=== PATIENT | female | born 1960 ===

== ENCOUNTER 2016-12-15 13:59 | Day surgery (SDC) | payer OTHER ==
[2016-12-15] MEDS ORDERED: Midazolam 2 MG/2 ML VIAL ONE (15:50)
[2016-12-15] MEDS ORDERED: Sodium Chloride 0.9% 1,000 ML IV SCH (17:00)
[2016-12-15 17:13] VITALS: BMI 33.8
--- NOTE | 2016-12-16 16:29 | CATH ---
APPROVED REPORT HISTORY The patient is a 56 year-old mmale with a history of : hypertension, dyslipidemia. INDICATION The indication(s) include : non-STEMI (>24 hrs to = 48 hrs), chest pain, atrial fibrillation. CASE TECHNIQUE The patient was brought electively to the Cardiac Catheterization Laboratory in a fasting state and was prepped and draped in a sterile manner. The right femoral groin was infiltrated with 2% Lidocaine subcutaneous anesthesia. A sheath was inserted into the right femoral artery without difficulty. Coronary angiography was performed using coronary diagnostic catheters. The left coronary system was accessed and visualized with a Diagnostic catheter. The right coronary system was accessed and visualized with a Diagnostic catheter. The left ventricle was accessed and visualized with a Diagnostic catheter. Left ventricular/Aortic Valve gradient assessed on pullback. Left ventriculogram was performed in MOSES projection. Pre-demployment femoral angiogram was performed . Closure device was deployed with a Fr Angioseal without any complications. Vessel Analysis The patient's coronary anatomy is left dominant. The left main coronary artery is a large size vessel without stenosis. The left main bifurcates to the left anterior descending and circumflex. The left anterior descending artery is a large size vessel without stenosis. The first diagonal branch is a small size vessel without significant stenosis. The second diagonal branch is a large size vessel without stenosis. The circumflex artery is a large size vessel without stenosis. The first obtuse marginal branch is a large size vessel without stenosis. The second obtuse marginal branch is a large size vessel without stenosis. The left posterior descending artery is a large size vessel without stenosis. The right coronary artery is a small size vessel without stenosis. Left Ventricle The left ventricle is normal in size with normal contractility. The left ventricular ejection fraction is estimated to be 75%. The left ventricular end diastolic pressure is 20 mmHg. There was no gradient across the aortic valve upon pullback. Conclusion Concentric hypertrophy of LV No sig CAD L dominant system Recommendations Aggressive Medical TherapyCardiac Risk Reduction Program Medical Therapy
== END 2016-12-15 20:00 | disposition short-term general hospital (02) ==
LOC: C.CATHLAB 13:59
PROVIDERS: ATTEND Internal Medicine Cardiovascular Disease
DX: I25.10 Atherosclerotic heart disease of native coronary artery without angina pectoris (principal); I48.91 Unspecified atrial fibrillation; E78.5 Hyperlipidemia, unspecified; I10 Essential (primary) hypertension
CPT/HCPCS: 93452; J1644; J2250; J3010; J7040; Q9967

== ENCOUNTER 2018-04-15 20:45 | Inpatient (IN) | payer OTHER ==
[2018-04-15 20:46] VITALS: BMI 33.8
[2018-04-15 22:05] LABS: SQUAMOUS EPITHIAL 3 /hpf (0-5); URINE BACTERIA RARE (<OCC); URINE BILIRUBIN NEGATIVE (NEGATIVE); URINE BLOOD 1+ (NEGATIVE); URINE CLARITY Hazy (Clear); URINE COLOR Yellow (YELLOW); URINE GLUCOSE (UA) NORMAL (Normal); URINE LEUKOCYTE ESTERASE NEG Leu/uL (Negative); URINE PROTEIN NEGATIVE (NEGATIVE)
[2018-04-15 22:07] LABS: BASO # 0.1 K/uL (0.0-0.2); BASO % 0.5 % (0.0-2.0); EOS # 0.2 K/uL (0.0-0.7); EOS % 1.7 % (0.0-4.0); LYMPH # 4.1 K/uL (1.0-4.3); LYMPH % 42.1 % (20.0-40.0); MEAN CELL VOLUME 91.3 fL (81.0-99.0); MEAN CORPUSCULAR HEMOGLOBIN 29.2 pg (27.0-31.0); MEAN CORPUSCULAR HGB CONC 31.9 g/dL (33.0-37.0); MEAN PLATELET VOLUME 9.4 fL (7.2-11.7); MONO # 0.6 K/uL (0.0-0.8); MONO % 6.4 % (0.0-10.0); NEUT # 4.8 K/uL (1.8-7.0); NEUT % 49.3 % (50.0-75.0); NRBC % 0.1 % (0.0-2.0); RBC 5.16 Mil/uL (3.80-5.20); RED CELL DISTRIBUTION WIDTH 13.5 % (11.5-14.5); WHITE BLOOD COUNT 9.8 K/uL (4.8-10.8)
[2018-04-15 22:16] LABS: BARBITURATES, UR NEGATIVE (NEGATIVE); BENZODIAZEPINES, UR NEGATIVE (NEGATIVE); OPIATES, UR NEGATIVE (NEGATIVE); PHENCYCLIDINE, UR NEGATIVE (NEGATIVE)
[2018-04-15 22:22] LABS: ALB/GLOB RATIO 1.5 (1.0-2.1); ALBUMIN 4.9 g/dL (3.5-5.0); ALT/SGPT 14 U/L (9-52); AST/SGOT 34 U/L (14-36); BLOOD UREA NITROGEN 27 mg/dL (7-17); CALCIUM 10.6 mg/dl (8.6-10.4); GFR NON-AFRICAN AMERICAN > 60
--- NOTE | 2018-04-16 00:11 | C.PDOC ---
History Of Present Illness 57 year old female with PMHx of dementia, schizophrenia, bipolar disorder is brought to the ED by her sister and home health aid for evaluation. Prior ED evaluations for similar presentation 1 year ago. Patient is non compliant with her medications, has history of aggressive behaviour towards her home health aid. <Austen Hernandez - Last Filed: 04/16/18 00:43> History Per: Family History/Exam Limitations: clinical condition Onset/Duration Of Symptoms: Days Current Symptoms Are (Timing): Still Present Suicide/Self Injury Attempted (Context): None Modifying Factor(s): None Associated Symptoms: Anger, Agitation Recent travel outside of the [place]: No Additional History Per: Family, Intermediate <Austen Hernandez - Last Filed: 04/16/18 00:43> <Shawn Melendez - Last Filed: 04/16/18 02:21> Time Seen by Provider: 04/15/18 21:13 Chief Complaint (Nursing): Psychiatric Evaluation Past Medical History Reviewed: Historical Data, Nursing Documentation, Vital Signs Vital Signs: Last Vital Signs Temp 96 F L 04/15/18 20:49 Pulse 77 04/15/18 20:49 Resp 18 04/15/18 20:49 BP 188/96 H 04/15/18 20:49 Pulse Ox 96 04/15/18 20:49 - Medical History PMH: Anxiety, Bipolar Disorder, Depression, Gastritis, HTN (not on meds), Hypercholesterolemia, Schizophrenia Denies: Diabetes, Hepatitis, HIV, Chronic Kidney Disease, Seizures, Sexually Transmitted Disease Surgical History: No Surg Hx - [facility] Procedures GROUP PSYCHOTHERAPY (12/16/16) INDIVID PSYCHOTHERAP NEC (03/21/13) INDIVIDUAL PSYCHOTHERAPY, BEHAVIORAL (12/08/16) INTRODUCTION OF SERUM/TOX/VACCINE INTO MUSCLE, PERC APPROACH (12/13/16) MEASURE OF CARDIAC SAMPL & PRESSURE, L HEART, PERC APPROACH (12/13/16) OTHER GROUP THERAPY (03/21/13) PLAIN RADIOGRAPHY OF L LOW EXTREM ART USING OTH CONTRAST (12/13/16) PLAIN RADIOGRAPHY OF LEFT HEART USING OTHER CONTRAST (12/13/16) Family History: States: Unknown Family Hx - Social History Hx Alcohol Use: No Hx Substance Use: No - Immunization History Hx Tetanus Toxoid Vaccination: No Hx Influenza Vaccination: No Hx Pneumococcal Vaccination: No <Austen Hernandez - Last Filed: 04/16/18 00:43> Vital Signs: Last Vital Signs Temp 96 F L 04/15/18 20:49 Pulse 77 04/15/18 20:49 Resp 18 04/15/18 20:49 BP 188/96 H 04/15/18 20:49 Pulse Ox 96 04/16/18 00:45 - [facility] Procedures GROUP PSYCHOTHERAPY (12/16/16) INDIVID PSYCHOTHERAP NEC (03/21/13) INDIVIDUAL PSYCHOTHERAPY, BEHAVIORAL (12/08/16) INTRODUCTION OF SERUM/TOX/VACCINE INTO MUSCLE, PERC APPROACH (12/13/16) MEASURE OF CARDIAC SAMPL & PRESSURE, L HEART, PERC APPROACH (12/13/16) OTHER GROUP THERAPY (03/21/13) PLAIN RADIOGRAPHY OF L LOW EXTREM ART USING OTH CONTRAST (12/13/16) PLAIN RADIOGRAPHY OF LEFT HEART USING OTHER CONTRAST (12/13/16) <Shawn Melendez - Last Filed: 04/16/18 02:21> Review Of Systems Review Of Systems: ROS cannot be obtained secondary to pt's inabilty to answer questions. <Austen Hernandez - Last Filed: 04/16/18 00:43> Physical Exam - Physical Exam Appears: Non-toxic, Unkempt, Confused, Chronically Ill (mentally) Skin: Normal Color, Warm, Dry Head: Atraumatic, Normacephalic Eye(s): bilateral: Normal Inspection Neck: Normal ROM, Supple Chest: Symmetrical Cardiovascular: Rhythm Regular Respiratory: Normal Breath Sounds, No Rales, No Rhonchi, No Wheezing Gastrointestinal/Abdominal: Soft, No Tenderness Extremity: Normal ROM Neurological/Psych: Other (mumbling incoherent) Gait: Steady <Austen Hernandez - Last Filed: 04/16/18 00:43> ED Course And Treatment - Laboratory Results Result Diagrams: 04/15/18 22:04 04/15/18 22:04 Lab Results: Total Bilirubin 0.5 mg/dL (0.2-1.3) 04/15/18 22:04 AST 34 U/L (14-36) 04/15/18 22:04 ALT 14 U/L (9-52) 04/15/18 22:04 Alkaline Phosphatase 85 U/L (38-126) 04/15/18 22:04 Total Protein 8.2 g/dL (6.3-8.3) 04/15/18 22: Albumin 4.9 g/dL (3.5-5.0) 04/15/18 22:04 Globulin 3.3 gm/dL (2.2-3.9) 04/15/18 22:04 Albumin/Globulin Ratio 1.5 (1.0-2.1) 04/15/18 22:04 Urine Color Yellow (YELLOW) 04/15/18 21:55 Urine Clarity Hazy (Clear) 04/15/18 21:55 Urine pH 5.0 (5.0-8.0) 04/15/18 21:55 Ur Specific [place] 1.023 (1.003-1.030) 04/15/18 21:55 Urine Protein Negative mg/dL (NEGATIVE) 04/15/18 21:55 Urine Glucose (UA) Normal mg/dL (Normal) 04/15/18 21:55 Urine Ketones Negative mg/dL (NEGATIVE) 04/15/18 21:55 Urine Blood 1+ (NEGATIVE) H 04/15/18 21:55 Urine Nitrate Negative (NEGATIVE) 04/15/18 21:55 Urine Bilirubin Negative (NEGATIVE) 04/15/18 21:55 Urine Urobilinogen 2.0 mg/dL (0.2-1.0) H 04/15/18 21:55 Ur Leukocyte Esterase Neg Angelita/uL (Negative) 04/15/18 21:55 Urine WBC (Auto) 1 /hpf (0-5) 04/15/18 21:55 Urine RBC (Auto) 4 /hpf (0-3) H 04/15/18 21:55 Ur Squamous Epith Cells 3 /hpf (0-5) 04/15/18 21:55 Urine Bacteria Rare (<OCC) 04/15/18 21:55 Lab Interpretation: Normal (ua neg.) O2 Sat by Pulse Oximetry: 96 (ON RA) Pulse Ox Interpretation: Normal Progress Note: 0005: medically cleared for psych adm. EKG and CXR pending in case of Psych Screening <Austen Hernandez - Last Filed: 04/16/18 00:43> - Laboratory Results Result Diagrams: 04/15/18 22:04 04/15/18 22:04 Lab Results: Total Bilirubin 0.5 mg/dL (0.2-1.3) 04/15/18 22:04 AST 34 U/L (14-36) 04/15/18 22:04 ALT 14 U/L (9-52) 04/15/18 22:04 Alkaline Phosphatase 85 U/L (38-126) 04/15/18 22:04 Total Protein 8.2 g/dL (6.3-8.3) 04/15/18 22:04 Albumin 4.9 g/dL (3.5-5.0) 04/15/18 22:04 Globulin 3.3 gm/dL (2.2-3.9) 04/15/18 22:04 Albumin/Globulin Ratio 1.5 (1.0-2.1) 04/15/18 22:04 Urine Color Yellow (YELLOW) 04/15/18 21:55 Urine Clarity Hazy (Clear) 04/15/18 21:55 Urine pH 5.0 (5.0-8.0) 04/15/18 21:55 Ur Specific [place] 1.023 (1.003-1.030) 04/15/18 21:55 Urine Protein Negative mg/dL (NEGATIVE) 04/15/18 21:55 Urine Glucose (UA) Normal mg/dL (Normal) 04/15/18 21:55 Urine Ketones Negative mg/dL (NEGATIVE) 04/15/18 21:55 Urine Blood 1+ (NEGATIVE) H 04/15/18 21:55 Urine Nitrate Negative (NEGATIVE) 04/15/18 21:55 Urine Bilirubin Negative (NEGATIVE) 04/15/18 21:55 Urine Urobilinogen 2.0 mg/dL (0.2-1.0) H 04/15/18 21:55 Ur Leukocyte Esterase Neg Angelita/uL (Negative) 04/15/18 21:55 Urine WBC (Auto) 1 /hpf (0-5) 04/15/18 21:55 Urine RBC (Auto) 4 /hpf (0-3) H 04/15/18 21:55 Ur Squamous Epith Cells 3 /hpf (0-5) 04/15/18 21:55 Urine Bacteria Rare (<OCC) 04/15/18 21:55 ECG: Interpreted By Me, Viewed By Me ECG Rhythm: Sinus Rhythm (701), Nonspecific Changes (lvh) Pulse Ox Interpretation: Normal <Shawn Melendez - Last Filed: 04/16/18 02:21> Medical Decision Making Medical Decision Making: decompensaed bipolar/schizo/dementia, non-compliant w PO meds @ home, unable to be controlled by [employer], 0010: pending psych eval. 0100: signed over to overnight MD pending Psych Dispo <Austen Hernandez E - Last Filed: 04/16/18 00:43> Disposition <Austen Hernandez - Last Filed: 04/16/18 00:43> Discussed With Dr.: Hortencia Forde Comment: acceptd the pt on his service and took over the care at 2:06 AM Doctor Will See Patient In The: Hospital Counseled Patient/Family Regarding: Studies Performed, Diagnosis - Disposition Disposition Time: 01:00 - POA Present On Arrival: None <Shawn Melendez - Last Filed: 04/16/18 02:21> - Disposition Disposition: HOSPITALIZED Condition: FAIR Forms: [employer] (Stateless) - Clinical Impression Clinical Impression: Bipolar disorder, unspecified - Scribe Statement The provider has reviewed the documentation as recorded by the Scribe Alin Merchant All medical record entries made by the Scribe were at my direction and personally dictated by me. I have reviewed the chart and agree that the record accurately reflects my personal performance of the history, physical exam, medical decision making, and the department course for this patient. I have also personally directed, reviewed, and agree with the discharge instructions and disposition. <Austen Hernandez E - Last Filed: 04/16/18 00:43> Physician Patient Turnover Patient Signed Over To: Shawn Melendez Handoff Comments: Pending Crisis/Psych Dispo <Austen Hernandez - Last Filed: 04/16/18 00:43> Decision To Admit <Austen Hernandez - Last Filed: 04/16/18 00:43> - Pt Status Changed To: Hospital Disposition Of: Inpatient - Admit Certification Admit to Inpatient:: After my assessment, the patient will require hospitalization for at least two midnights. This is because of the severity of symptoms shown, intensity of services needed, and/or the medical risk in this patient being treated as an outpatient. - InPatient: Physician Admission Certification: I certify that this patient requires 2 or more midnights of care for the following reason:: After my assessment, the patient will require hospitalization for at least two midnights. This is because of the severity of symptoms shown, intensity of services needed, and/or the medical risk in this patient being treated as an outpatient. - . Bed Request Type: Psychiatry Admitting Physician: Hortencia Forde <Shawn Melendez - Last Filed: 04/16/18 02:21> - . Patient Diagnosis: Bipolar disorder, unspecified
[2018-04-16] MEDS ORDERED: Influenza Vaccine 60 mcg/0.5 mL SYR (4YR UP) IM ONE (04:46)
--- NOTE | 2018-04-16 05:10 | PCM.BM ---
<Sriram Olmedo - Last Filed: 04/16/18 05:07> Treatment Plan Problems - Problems identified on initial assessmt Altered Thought Process Date Initiated: 04/16/18 Time Initiated: 03:40 Assessment reference: NA Status: Active Agitated/Aggressive Behavior Date Initiated: 04/16/18 Time Initiated: 03:40 Assessment reference: NA Status: Monitor Treatment assets and liabiliti Patient Assests: ADL independent, good support system, negotiates basic needs, s jenifer vipin Patient Liabilities: live alone, medical problems - Milieu Protocol Maintain good personal hygiene: daily Encourage regular showers, daily Remind patient to perform daily oral care, daily Assist patient to perform ADL's Conduct patient checks and document Observation sheet: Q15 minutes Maintain personal safety: every shift Educate patient to report safety concerns to staff, every shift Monitor environment for contraband/sharps Medication safety: Monitor for expected outcome, potential side effects: every shift, Assess barriers to learning: every shift, Assess readiness for medication education: every shift <Poppy San - Last Filed: 04/20/18 11:52> - Diagnosis (1) Schizoaffective disorder Status: Acute Interventions: 04/20/18 11:54 * Assess/adjust medications daily and /or as needed * See patient on an individual basis 7x/week to assess status of hallucinations * Discuss risks, benefits, side effects and alternatives of medications * <Chrissie Trimble - Last Filed: 04/20/18 14:26> Family Contact Family involvement: Family/SO is involved Family contact: Patient agrees to contact Family contact name: Marlyn Dupont-sister Family contacted how many times per week?: 1 - Goals for Treatment Patient goals for treatment: "I need help." Discharge/Continuing Care - Education Needs Education Needs: Patient Medication, Patient Coping Skills - Discharge Discharge Criteria: Tolerates medication w/o severe side effects, Reduction of target symptoms Discharge to:: Home - Treatment Team Participation Discussed with Family/SO: No Was Patient/Family/SO present at Treatment Team Meeting: Yes
[2018-04-16] MEDS ORDERED: Pneumococcal 23-Valent Vaccine IM ONE (05:15)
--- NOTE | 2018-04-16 15:37 | RAD ---
Date of service: 04/16/2018 HISTORY: psych adm COMPARISON: No prior. FINDINGS: LUNGS: No active pulmonary disease. PLEURA: No significant pleural effusion identified, no pneumothorax apparent. CARDIOVASCULAR: No aortic atherosclerotic calcification present. Normal cardiac size. No pulmonary vascular congestion. OSSEOUS STRUCTURES: No significant abnormalities. VISUALIZED UPPER ABDOMEN: Normal. OTHER FINDINGS: None. IMPRESSION: No active disease.
[2018-04-16] MEDS: Lithium Carbonate ER Tab 450 MG PO SCH (18:57)
[2018-04-17] MEDS: Lithium Carbonate ER Tab 450 MG PO SCH ×2 (10:15→17:48)
[2018-04-18] MEDS: Lithium Carbonate ER Tab 450 MG PO SCH ×2 (10:05→17:42)
--- NOTE | 2018-04-18 10:43 | PCM.PSYCH ---
Initial Psychiatric Evaluation - Initial Psychiatric Evaluation Type of Admission: Voluntary Legal Status: Capacity Current Medications: Active Medications Generic Name Dose Route Start Last Admin Trade Name Ellyn PRN Reason Stop Dose Admin Aripiprazole 2 mg 04/16/18 18:00 04/18/18 10:05 Abilify PO 2 mg DAILY NEHAL Administration Gabapentin 300 mg 04/16/18 18:00 04/18/18 10:05 Neurontin PO 300 mg TID NEHAL Administration [place] Carbonate 450 mg 04/16/18 18:00 04/18/18 10:05 [place] Carbonate PO 450 mg BID NEHAL Administration Past Psychiatric History - Past Psychiatric History Pertinent Medical Hx (Current Medical&Sleep Prob, Allergies): Allergies Allergy/AdvReac Type Severity Reaction Status Date / Time No Known Allergies Allergy Verified 04/15/18 21:06 Aspirin [Ecotrin] 81 mg PO DAILY #30 tabec 12/22/16 Bisoprolol [Zebeta] 2.5 mg PO DAILY #30 tab 12/22/16 Divalproex [Depakote DR(*BID*)] 500 mg PO BID #60 tcp 12/22/16 risperiDONE [RisperDAL Tab] 3 mg PO Q12 #60 tab 12/22/16 Allopurinol [Zyloprim] 300 mg PO DAILY 04/15/18 Ergocalciferol [Drisdol] 50,000 iu PO QWK 04/15/18 [id number] Ethyl Esters 1 GM [Lovaza] 2 cap PO BID 04/15/18 Rosuvastatin Calcium 10 mg PO HS 04/15/18
--- NOTE | 2018-04-18 10:43 | PCM.PYCHPN ---
Psychiatric Progress Note - Psychiatric Progress Note Patient seen today, length of contact: 15 min Patient Chief Complaint: I was feeling irritable.' Problems Identified/Issues Discussed: Patient was seen and evaluated, chart reviewed and discussed the staff. Patient still appears disorganized and internally preoccupied. As per the staff she remained isolative and withdrawn and appears paranoid and delusional. She is taking medication but denies any side effects. Symptoms are improving gradually but she needs to stay longer for the stabilization. Supportive therapy was given. Medication Change: Yes Medical Record Reviewed: Yes Mental Status Examination - Cognitive Function Orientation: Person, Place, Situation, Time Memory: Intact Attention: WNL Concentration: Poor Association: Loose Fund of Knowledge: WNL - Mood Mood: Anxious - Affect Affect: Constricted - Speech Speech: Pressured - Formal Thought Process Formal Thought Process: Hallucinations, Delusions, Paranoia - Suicidal Ideation Suicidal Ideation: No - Homicidal Ideation Homicidal Ideation: No Goal/Treatment Plan - Goal/Treatment Plan Need for Continued Stay: Remain at risks for inpatient hospitalization Progress Toward Problem(s) and Goals/Treatment Plan: Bipolar disorder mixed severe with psychotic features CBT Psychoeducation Supportive therapy and group therapy Abilify for mood [place] for mood Neurontin for augmentation Hydroxyzine for anxiety Trazodone for insomnia
[2018-04-19] MEDS: Lithium Carbonate ER Tab 450 MG PO SCH ×2 (10:32→18:31)
--- NOTE | 2018-04-19 19:32 | CARD ---
APPROVED REPORT Date of service: 04/16/2018 EKG Measurement Heart [id number] <Conclusion> Normal sinus rhythm Left ventricular hypertrophy with repolarization abnormality Abnormal ECG
[2018-04-20] MEDS: Lithium Carbonate ER Tab 450 MG PO SCH ×2 (10:37→17:53)
--- NOTE | 2018-04-20 11:47 | PCM.PYCHPN ---
Psychiatric Progress Note - Psychiatric Progress Note Patient seen today, length of contact: 15 min Patient Chief Complaint: I m hearing voices.' Problems Identified/Issues Discussed: Patient was seen and evaluated, chart reviewed and discussed the staff. She was seen during the treatment meeting, she appeared disheveled, unkempt and was responding to internal stimuli. Patient still appears disorganized and internally preoccupied. As per the staff she remained isolative and withdrawn and appears paranoid and delusional. As per staff, she is going to urine and feces incontinent and she is going to the bathroom over and over. She is taking medication but denies any side effects. Symptoms are improving gradually but she needs to stay longer for the stabilization. Supportive therapy was given. Medication Change: Yes Medical Record Reviewed: Yes Mental Status Examination - Cognitive Function Orientation: Person, Place, Situation, Time Memory: Intact Attention: Poor Concentration: Poor Association: Loose Fund of Knowledge: Poor - Mood Mood: Anxious - Affect Affect: Constricted - Speech Speech: Soft - Formal Thought Process Formal Thought Process: Hallucinations, Delusions, Paranoia, Loosening of associations - Suicidal Ideation Suicidal Ideation: No - Homicidal Ideation Homicidal Ideation: No Goal/Treatment Plan - Goal/Treatment Plan Need for Continued Stay: Remain at risks for inpatient hospitalization Progress Toward Problem(s) and Goals/Treatment Plan: Bipolar disorder mixed severe with psychotic features CBT Psychoeducation Supportive therapy and group therapy Discontinue Abilify for mood Discontinue lithium for mood Neurontin for augmentation Hydroxyzine for anxiety Trazodone for insomnia Start Geodon for psychosis
[2018-04-21] MEDS: Lithium Carbonate ER Tab 450 MG PO SCH (09:47)
--- NOTE | 2018-04-21 16:11 | PCM.PYCHPN ---
Psychiatric Progress Note - Psychiatric Progress Note Patient seen today, length of contact: 15 min Patient Chief Complaint: I m hearing voices.' Problems Identified/Issues Discussed: Patient was seen and evaluated, chart reviewed and discussed the staff. She was seen during the treatment meeting, she appeared disheveled, unkempt and was responding to internal stimuli. Patient still appears disorganized and internally preoccupied. As per the staff she remained isolative and withdrawn and appears paranoid and delusional. As per staff, she is going to urine and feces incontinent and she is going to the bathroom over and over. She is taking medication but denies any side effects. Symptoms are improving gradually but she needs to stay longer for the stabilization. Supportive therapy was given. Medication Change: Yes Medical Record Reviewed: Yes Mental Status Examination - Cognitive Function Orientation: Person, Place, Situation, Time Memory: Intact Attention: Poor Concentration: Poor Association: Loose Fund of Knowledge: Poor - Mood Mood: Anxious - Affect Affect: Constricted - Speech Speech: Soft - Formal Thought Process Formal Thought Process: Hallucinations, Delusions, Paranoia, Loosening of associations - Suicidal Ideation Suicidal Ideation: No - Homicidal Ideation Homicidal Ideation: No Goal/Treatment Plan - Goal/Treatment Plan Need for Continued Stay: Remain at risks for inpatient hospitalization Progress Toward Problem(s) and Goals/Treatment Plan: Bipolar disorder mixed severe with psychotic features -CBT -Psychoeducation -Supportive therapy and group therapy -Neurontin for augmentation -Hydroxyzine for anxiety -Trazodone for insomnia -Geodon for psychosis - Smoking Cessation Smoking Cessation Initiated: No
--- NOTE | 2018-04-22 11:43 | PCM.PYCHPN ---
Psychiatric Progress Note - Psychiatric Progress Note Patient seen today, length of contact: 15 min Patient Chief Complaint: I m hearing voices.' Problems Identified/Issues Discussed: Patient was seen and evaluated, chart reviewed and discussed the staff. Patient still appears disorganized and internally preoccupied. She was seen during the treatment meeting, she appeared disheveled, unkempt and was responding to internal stimuli. As per the staff she remained isolative and withdrawn and appears paranoid and delusional. As per staff, she is going to urine and feces incontinent and she is going to the bathroom over and over. She is taking medication but denies any side effects. Symptoms are improving gradually but she needs to stay longer for the stabilization. Supportive therapy was given. Medication Change: Yes Medical Record Reviewed: Yes Mental Status Examination - Cognitive Function Orientation: Person, Place, Situation, Time Memory: Intact Attention: Poor Concentration: Poor Association: Loose Fund of Knowledge: Poor - Mood Mood: Anxious - Affect Affect: Constricted - Speech Speech: Soft - Formal Thought Process Formal Thought Process: Hallucinations, Delusions, Paranoia, Loosening of associations - Suicidal Ideation Suicidal Ideation: No - Homicidal Ideation Homicidal Ideation: No Goal/Treatment Plan - Goal/Treatment Plan Need for Continued Stay: Remain at risks for inpatient hospitalization Progress Toward Problem(s) and Goals/Treatment Plan: Bipolar disorder mixed severe with psychotic features CBT Psychoeducation Supportive therapy and group therapy Discontinue Abilify for mood Discontinue lithium for mood Neurontin for augmentation Hydroxyzine for anxiety Trazodone for insomnia Start Geodon for psychosis
--- NOTE | 2018-04-23 23:02 | PCM.PYCHPN ---
Psychiatric Progress Note - Psychiatric Progress Note Patient seen today, length of contact: 15 min Patient Chief Complaint: I am okay. Problems Identified/Issues Discussed: Patient seen, chart reviewed, case discussed with the staff. Issues related to illness and treatment were discussed with the patient and staff. Reported compliant with treatment with no adverse effects. Tolerating treatment very well. Mood reported as okay. Affect appropriate. Patient reported feeling little better. Patient was still disorganized, talkative but difficult to understand the words spoken. Staff also reported that patient is better than before and is also less isola tive. Patient needs more time for stabilization Aftercare discussed with the patient. Patient denied any delusions, auditory or visual hallucinations, no suicidal ideations or homicidal ideations at the time of evaluation Medical Problems: None reported Diagnostic Results: Reviewed DSM 5 Symptoms Update: Some improvement with treatment. Medication Change: No Medical Record Reviewed: Yes Mental Status Examination - Cognitive Function Orientation: Person, Place, Situation, Time Memory: Intact Attention: WNL Concentration: WNL Association: Loose Fund of Knowledge: Poor Decription of patient's judgement and insights: Fair - Mood Mood: Neutral - Affect Affect: Constricted - Speech Speech: Soft - Formal Thought Process Formal Thought Process: Delusions, Loosening of associations - Suicidal Ideation Suicidal Ideation: No - Homicidal Ideation Homicidal Ideation: No Goal/Treatment Plan - Goal/Treatment Plan Need for Continued Stay: Remain at risks for inpatient hospitalization, Discharge may exacerbated symptoms, Severe functional impairment Progress Toward Problem(s) and Goals/Treatment Plan: Patient education. Supportive therapy. Continue treatment as before. Estimated Date of D/C: 04/26/18 - Smoking Cessation Smoking Cessation Initiated: No
[2018-04-25 06:37] VITALS: O2SAT 97
--- NOTE | 2018-04-25 10:52 | PCM.PYCHPN ---
Psychiatric Progress Note - Psychiatric Progress Note Patient seen today, length of contact: 15 min Patient Chief Complaint: I m feeling okay.' Problems Identified/Issues Discussed: Patient was seen and evaluated, chart reviewed and discussed the staff. As per staff she is not incontinent anymore. However she still appears disorganized and internally preoccupied. She still responding to internal stimuli. However she remained calm, cooperative and redirectable. She remained disheveled and unkempt. She is taking medication but denies any side effects. Symptoms are improving gradually but she needs to stay longer for the stabilization. Supportive therapy was given. Medication Change: No Medical Record Reviewed: Yes Mental Status Examination - Cognitive Function Orientation: Person, Place, Situation, Time Memory: Intact Attention: WNL Concentration: Poor Association: Loose Fund of Knowledge: Poor - Mood Mood: Depressed, Anxious - Affect Affect: Constricted - Speech Speech: Soft - Formal Thought Process Formal Thought Process: Delusions, Loosening of associations - Suicidal Ideation Suicidal Ideation: No - Homicidal Ideation Homicidal Ideation: No Goal/Treatment Plan - Goal/Treatment Plan Need for Continued Stay: Remain at risks for inpatient hospitalization, Discharge may exacerbated symptoms, Severe functional impairment Progress Toward Problem(s) and Goals/Treatment Plan: Bipolar disorder mixed severe with psychotic features CBT Psychoeducation Supportive therapy and group therapy Neurontin for augmentation Hydroxyzine for anxiety Trazodone for insomnia Geodon for psychosis Olanzapine for psychosis Estimated Date of D/C: 04/26/18 - Smoking Cessation Smoking Cessation Initiated: No
--- NOTE | 2018-04-26 09:54 | PCM.PYCHPN ---
Psychiatric Progress Note - Psychiatric Progress Note Patient seen today, length of contact: 15 min Patient Chief Complaint: I am feeling okay.' Problems Identified/Issues Discussed: Patient was seen and evaluated, chart reviewed and discussed the staff. As per staff she is not incontinent anymore. She still appears disorganized, internally preoccupied and she is still responding to internal stimuli. She remained disheveled and unkempt. However she remained calm, cooperative and redirectable. She is taking medication but denies any side effects. Symptoms are improving gradually but she needs to stay longer for the stabilization. Supportive therapy was given. Medication Change: No Medical Record Reviewed: Yes Mental Status Examination - Cognitive Function Orientation: Person, Place, Situation, Time Memory: Intact Attention: Poor Concentration: Poor Association: Loose Fund of Knowledge: Poor - Mood Mood: Anxious - Affect Affect: Constricted - Speech Speech: Soft - Formal Thought Process Formal Thought Process: Delusions, Paranoia, Loosening of associations - Suicidal Ideation Suicidal Ideation: No - Homicidal Ideation Homicidal Ideation: No Goal/Treatment Plan - Goal/Treatment Plan Need for Continued Stay: Remain at risks for inpatient hospitalization, Discharge may exacerbated symptoms, Severe functional impairment Progress Toward Problem(s) and Goals/Treatment Plan: Bipolar disorder mixed severe with psychotic features CBT Psychoeducation Supportive therapy and group therapy Neurontin for augmentation Hydroxyzine for anxiety Trazodone for insomnia Geodon for psychosis Olanzapine for psychosis Estimated Date of D/C: 05/02/18
--- NOTE | 2018-04-27 10:17 | PCM.BM ---
<RashelChrissie Chacon - Last Filed: 04/27/18 10:16> Treatment Plan Problems - Problems identified on initial assessmt Altered Thought Process Date Initiated: 04/16/18 Time Initiated: 03:40 Assessment reference: NA Status: Active Agitated/Aggressive Behavior Date Initiated: 04/16/18 Time Initiated: 03:40 Assessment reference: NA Status: Monitor Treatment assets and liabiliti Patient Assests: ADL independent, good support system, negotiates basic needs, strong vipin Patient Liabilities: live alone, medical problems - Milieu Protocol Maintain good personal hygiene: daily Encourage regular showers, daily Remind patient to perform daily oral care, daily Assist patient to perform ADL's Conduct patient checks and document Observation sheet: Q15 minutes Maintain personal safety: every shift Educate patient to report safety concerns to staff, every shift Monitor environment for contraband/sharps Medication safety: Monitor for expected outcome, potential side effects: every shift, Assess barriers to learning: every shift, Assess readiness for medication education: every shift Milieu Narrative: Bipolar disorder mixed severe with psychotic features CBT Psychoeducation Supportive therapy and group therapy Neurontin for augmentation Hydroxyzine for anxiety Trazodone for insomnia Geodon for psychosis Olanzapine for psychosis Family Contact Family involvement: Family/SO is involved Family contact: Patient agrees to contact Family contact name: Marlyn Dupont-sister Family contacted how many times per week?: 1 - Goals for Treatment Patient goals for treatment: "I need help." Discharge/Continuing Care - Education Needs Education Needs: Patient Medication, Patient Coping Skills - Discharge Discharge Criteria: Tolerates medication w/o severe side effects, Reduction of target symptoms Discharge to:: Home - Treatment Team Participation Patient/Family/SO Statement: Bipolar disorder mixed severe with psychotic features CBT Psychoeducation Supportive therapy and group therapy Neurontin for augmentation Hydroxyzine for anxiety Trazodone for insomnia Geodon for psychosis Olanzapine for psychosis Discussed with Family/SO: No Was Patient/Family/SO present at Treatment Team Meeting: Yes Treatment Plan Review - Problem Altered Thought Process Time Initiated: 03:40 Agitated/Aggressive Behavior Time Initiated: 03:40 - Discharge / Continuing Care Discharge to:: Home Behavioral Health Services: Home health care, Adult day care Health Needs: Medications/Rx, Recreational/Social <Poppy San - Last Filed: 04/27/18 10:43> - Diagnosis (1) Schizoaffective disorder Status: Acute Interventions: 04/27/18 10:43 * Assess/adjust medications daily and /or as needed * See patient on an individual basis 7x/week to assess status of hallucinations * Discuss risks, benefits, side effects and alternatives of medications * <Lauren Steinberg - Last Filed: 04/27/18 15:06> Treatment Plan Review - Problem Altered Thought Process Date Initiated: 04/27/18 Time Initiated: 15:06 Progress toward outcomes: improved Agitated/Aggressive Behavior Date Initiated: 04/27/18 Time Initiated: 15:06 Progress toward outcomes: improved
--- NOTE | 2018-04-28 09:43 | PCM.PYCHPN ---
Psychiatric Progress Note - Psychiatric Progress Note Patient seen today, length of contact: 15 min Patient Chief Complaint: I am feeling okay.' Problems Identified/Issues Discussed: Patient was seen and evaluated, chart reviewed and discussed the staff. Today pt appears somewhat more organized than before but she remained internally preoccupied. Per staff she is still responding to internal stimuli. However, per staff she is not incontinent anymore. She remained disheveled and unkempt. However she remained calm, cooperative and redirectable. She is taking medication but denies any side effects. Symptoms are improving gradually but she needs to stay longer for the stabilization. Supportive therapy was given. Medication Change: Yes Medical Record Reviewed: Yes Mental Status Examination - Cognitive Function Orientation: Person, Place, Situation, Time Memory: Intact Attention: WNL Concentration: Poor Association: Loose Fund of Knowledge: Poor - Mood Mood: Anxious - Affect Affect: Constricted - Speech Speech: Soft - Formal Thought Process Formal Thought Process: Delusions, Paranoia, Loosening of associations - Suicidal Ideation Suicidal Ideation: No - Homicidal Ideation Homicidal Ideation: No Goal/Treatment Plan - Goal/Treatment Plan Need for Continued Stay: Remain at risks for inpatient hospitalization, Discharge may exacerbated symptoms, Severe functional impairment Progress Toward Problem(s) and Goals/Treatment Plan: Bipolar disorder mixed severe with psychotic features CBT Psychoeducation Supportive therapy and group therapy DC Neurontin for augmentation Hydroxyzine for anxiety Trazodone for insomnia Geodon for psychosis Increase Olanzapine for psychosis Estimated Date of D/C: 05/02/18 - Smoking Cessation Smoking Cessation Initiated: No
--- NOTE | 2018-04-29 09:55 | PCM.PYCHPN ---
Psychiatric Progress Note - Psychiatric Progress Note Patient seen today, length of contact: 15 min Patient Chief Complaint: I am feeling okay.' Problems Identified/Issues Discussed: Patient was seen and evaluated, chart reviewed and discussed the staff. As per staff, patient has been more visible than before. She appears more organized and less internally preoccupied than before. However as soon as she starts talking, she starts mumbling and her speech becomes disorganized. Her speech is still circumstantial and she continues to has loose associations. However, per staff she is not incontinent anymore. She remained disheveled and unkempt. However she remained calm, cooperative and redirectable. She is taking medication but denies any side effects. Symptoms are improving gradually but she needs to stay longer for the stabilization. Supportive therapy was given. Medication Change: Yes Medical Record Reviewed: Yes Mental Status Examination - Cognitive Function Orientation: Person, Place, Situation, Time Memory: Intact Attention: WNL Concentration: Poor Association: Loose Fund of Knowledge: WNL - Mood Mood: Anxious - Affect Affect: Constricted - Speech Speech: Soft - Formal Thought Process Formal Thought Process: Paranoia, Loosening of associations - Suicidal Ideation Suicidal Ideation: No - Homicidal Ideation Homicidal Ideation: No Goal/Treatment Plan - Goal/Treatment Plan Need for Continued Stay: Remain at risks for inpatient hospitalization, Discharge may exacerbated symptoms, Severe functional impairment Progress Toward Problem(s) and Goals/Treatment Plan: Bipolar disorder mixed severe with psychotic features CBT Psychoeducation Supportive therapy and group therapy Hydroxyzine for anxiety Trazodone for insomnia Geodon for psychosis Olanzapine for psychosis Estimated Date of D/C: 05/02/18
--- NOTE | 2018-04-30 12:20 | PCM.PYCHPN ---
Psychiatric Progress Note - Psychiatric Progress Note Patient seen today, length of contact: 15 min Patient Chief Complaint: "So so" Problems Identified/Issues Discussed: The pt is seen, chart reviewed, case is discussed with staff. The pt is compliant with medications and reports no side-effects. Symptoms are improving but needs more time to stabilize and to avoid relapse. Pt attends groups and activities. However, she is still disorganized Support given, psycho-education provided. After care discussed. Medication Change: No Medical Record Reviewed: Yes Mental Status Examination - Cognitive Function Orientation: Person, Place, Situation, Time Memory: Intact Attention: WNL Concentration: Poor Association: Loose Fund of Knowledge: Poor - Mood Mood: Anxious - Affect Affect: Constricted - Speech Speech: Soft - Formal Thought Process Formal Thought Process: Paranoia, Loosening of associations - Suicidal Ideation Suicidal Ideation: No - Homicidal Ideation Homicidal Ideation: No Goal/Treatment Plan - Goal/Treatment Plan Need for Continued Stay: Remain at risks for inpatient hospitalization, Discharge may exacerbated symptoms, Severe functional impairment Progress Toward Problem(s) and Goals/Treatment Plan: Continue medications Support and psychoeducation daily Attend groups and activities daily Individual therapy After care planning by OH and the team Estimated Date of D/C: 05/02/18
[2018-05-02 06:53] VITALS: RESP 18
--- NOTE | 2018-05-02 11:18 | PCM.PYCHPN ---
Psychiatric Progress Note - Psychiatric Progress Note Patient seen today, length of contact: 15 min Patient Chief Complaint: I am feeling better.' Problems Identified/Issues Discussed: Patient was seen and evaluated, chart reviewed and discussed the staff. Patient reports improvement in her mood and reports improvement in her anxiety and irritability. As per staff she is improving and she appears more organized than before. Her speech is still circumstantial but she appears more kempt than before. She remained calm, cooperative and redirectable. She is taking medication but denies any side effects. Symptoms are improving gradually but she needs to stay longer for the stabilization. Supportive therapy was given. Medication Change: No Medical Record Reviewed: Yes Mental Status Examination - Cognitive Function Orientation: Person, Place, Situation, Time Memory: Intact Attention: WNL Concentration: WNL Association: Loose Fund of Knowledge: WNL - Mood Mood: Anxious - Affect Affect: Constricted - Speech Speech: Soft - Formal Thought Process Formal Thought Process: Loosening of associations - Suicidal Ideation Suicidal Ideation: No - Homicidal Ideation Homicidal Ideation: No Goal/Treatment Plan - Goal/Treatment Plan Need for Continued Stay: Remain at risks for inpatient hospitalization Progress Toward Problem(s) and Goals/Treatment Plan: Bipolar disorder mixed severe with psychotic features CBT Psychoeducation Supportive therapy and group therapy Hydroxyzine for anxiety Trazodone for insomnia Geodon for psychosis Olanzapine for psychosis Estimated Date of D/C: 05/03/18 - Smoking Cessation Smoking Cessation Initiated: No
[2018-05-03 06:37] VITALS: BP 134/79; PULSE 87; TEMP 97.9
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
== END 2018-05-03 14:00 | disposition home or self-care (01) | DRG 885 ==
LOC: C.ER 20:45 → C.5E 04-16 02:05
PROVIDERS: ADMIT Psychiatry & Neurology Psychiatry; ATTEND Psychiatry & Neurology Psychiatry
PROC: GZHZZZZ Group Psychotherapy (ICD-10-PCS; principal; 2018-04-16)
PROC: GZ58ZZZ Individual Psychotherapy, Cognitive-Behavioral (ICD-10-PCS; 2018-04-16)
PROC: GZ56ZZZ Individual Psychotherapy, Supportive (ICD-10-PCS; 2018-04-16)
DX: F31.64 Bipolar disorder, current episode mixed, severe, with psychotic features (principal); F25.9 Schizoaffective disorder, unspecified; F03.90 Unspecified dementia, unspecified severity, without behavioral disturbance, psychotic disturbance, mood disturbance, and anxiety; F41.9 Anxiety disorder, unspecified; G47.00 Insomnia, unspecified; E78.00 Pure hypercholesterolemia, unspecified; I10 Essential (primary) hypertension; Z91.14 Patient's other noncompliance with medication regimen